=== PATIENT | female | born 1985 | race African-American/Black ===

== ENCOUNTER 2025-01-30 12:36 | Emergency (ER) | payer OTHER ==
[~2025-01-30] VITALS: Ht 175.3 cm; Wt 76.9 kg
--- NOTE | 2025-01-30 14:13 | DVH ---
INDICATION: sob TECHNIQUE: Frontal view of the chest. COMPARISON: None FINDINGS: . The heart and mediastinal contours are grossly unremarkable. There is no evidence of pleural disea se. The lungs are clear. The bony structures of the chest are intact without fracture. IMPRESSION: 1. No evidence of acute disease.
[2025-01-30 14:53] VITALS: BP 139/88; PULSE 95; RESP 26; TEMP 99.4; O2SAT 95
[2025-01-30] MEDS ORDERED: PRED10TA PO (15:04)
[2025-01-30] MEDS ORDERED: LEVO500T91 PO (15:04)
--- NOTE | 2025-01-30 15:04 | ED.PDOC ---
History of Present Illness HPI Comments 39-year-old female came to the ER stating that she has been having cough congestion sneezing for about a week. She also has been having runny nose. Cough is mostly throughout the day. She has not seen any provider for her symptoms. Denies taking any medication. Denies smoking. Dinner any other symptoms. Chief Complaint: Shortness of Breath Time Seen by MD: 13:22 Primary Care Provider: none Reviewed Notes: Nurses Notes, Medications, Allergies Allergies: Coded Allergies: NO KNOWN ALLERGIES (Unverified , 01/30/25) Home Meds Active Scripts Prednisone (Prednisone) 10 Mg Tab, 10 MG PO DAILY for 5 Days, #5 MG Prov:CHRISTIANO LOTT MD 01/30/25 Levofloxacin Hemihydrate (LEVOFLOXACIN) 500 Mg Tab, 1 TAB PO DAILY, #10 TAB Prov:CHRISTIANO LOTT MD 01/30/25 Information Source: Patient Mode of Arrival: Ambulatory Severity: Moderate Timing: Days Duration: Since onset Past Medical History PAST MEDICAL HISTORY: Denies Surgical History: Denies all surgeries CARE MANAGEMENT ASSOCIATE History: No Pertinent CARE MANAGEMENT ASSOCIATE History Social History Smoker: Non-Smoker Alcohol: Denies ETOH Use Drugs: Denies Drug Use Constitutional: denies: chills, diaphoresis, fatigue, fever, malaise, sweats, weakness, others EENTM: denies: blurred vision, double vision, ear bleeding, ear discharge, ear drainage, ear pain, ear ringing, eye pain, eye redness, hearing loss, mouth pain, mouth swelling, nasal discharge, nose bleeding, nose congestion, nose pain, photophobia, tearing, throat pain, throat swelling, voice changes, others Respiratory: reports: cough; denies: hemoptysis, orthopnea, SOB at rest, shortness of breath, SOB with excertion, stridor, wheezing, others Cardiovascular: denies: chest pain, dizzy spells, diaphoresis, Dyspnea on exertion, edema, irregular heart beat, left arm pain, lightheadedness, palpitations, PND, syncope, others Gastrointestinal: denies: abdomen distended, abdominal pain, blood streaked bowels, constipated, diarrhea, dysphagia, difficulty swallowing, hematemesis, melena, nausea, poor appetite, poor fluid intake, rectal bleeding, rectal pain, vomiting, others Genitourinary: denies: abnormal vagina bleeding, burning, dyspareunia, dysuria, flank pain, frequency, hematuria, incontinence, pain, , vagina discharge, urgency, others Neurological: denies: dizziness, fainting, headache, left sided numbness, left sided weakness, numbness, paresthesia, pre-existing deficit, right sided numbne ss, right sided weakness, seizure, speech problems, tingling, tremors, weakness, others Musculoskeletal: denies: back pain, gout, joint pain, joint swelling, muscle pain, muscle stiffness, neck pain, others Integumetry: denies: bruises, change in color, change in hair/nails, dryness, laceration, lesions, lumps, rash, wounds, others Allergic/Immunocompromised: denies: Difficulty Healing, Frequent Infections, Hives, Itching, others Hematologic/Lymphatic: denies: anemia, blood clots, easy bleeding, easy bruising, swollen glands, others Endocrine: denies: excessive hunger, excessive sweating, excessive thirst, excessive urination, flushing, intolerance to cold, intolerance to heat, unexplained weight gain, unexplained weight loss, others Psychiatric: denies: anxiety, bipolar disorder, depression, hopeless, panic disorder, schizophrenia, sleepless, suicidal, others Physical Exam General Appearance: Moderate Distress HEENT: Normal ENT Inspection, Pharynx Normal, TMs Normal Neck: Full Range of Motion, Non-Tender, Normal, Normal Inspection Respiratory: Other (Coarse breath sounds) Cardiovascular: No Edema, No JVD, No Murmur, No Gallop, Normal Peripheral Pulses, Regular Rate/Rhythm Breast Exam: Deferred Gastrointestinal: No Organomegaly, Non Tender, No Pulsatile Mass, Normal Bowel Sounds, Soft Genitalia: Deferred Pelvic: Deferred Rectal: Deferred Extremities: No calf tenderness, Normal capillary refill, Normal inspection, Normal range of motion, Non-tender, No pedal edema Musculoskeletal : Apperance: Normal Neurologic: Alert, human resources administrator II-XII nml as Tested, No Motor Deficits, Normal Affect, Normal Mood, No Sensory Deficits Cerebellar Function: Normal Reflexes: Normal Skin: Dry, Normal Color, Warm Peripheral Pulses: 3+ Radial (R), 3+ Radial (L) Lymphatic: No Adenopathy Was a procedure done? Was a procedure done?: No Differential Dx Considerations may include: Pneumonitis Electrolyte imbalance X-Ray, Labs, Meds, VS Vital Signs Date Time Temp Pulse Resp B/P (MAP) Pulse Ox O2 Delivery O2 Flow Rate FiO2 01/30/25 14:53 95 26 95 Room Air* 0 21 01/30/25 14:53 99.4 95 26 139/88 (105) 95 99.4 01/30/25 12:51 19 97 Room Air* 0 21 01/30/25 12:47 99.7 98 19 129/94 (106) 97 99.7 Current Medications Medications (Trade) Dose Ordered Sig/Jayda Route Start Time Stop Time Status Last Admin Methylprednisolone Sodium Succinate (Solu Medrol) 125 mg ONCE ONCE IM 01/30/25 15:00 01/30/25 15:01 DC 01/30/25 15:10 Patient alert. Complaining of cough. Chest x-ray reviewed does not show any acute changes mild inflammation. Vitals stable. Saturation pristine on room air. Respiratory rate within normal limits. No leg swelling. No chest pain. No discoloration. Heart rate on clinical examination within normal limits. Was given steroid. Was given prescription of prednisolone Levaquin antibiotic. Explained to the patient. Was told to follow up with her primary care physician. Was told to come back if there is any problem. Time of 1ST Reevaluation: 15:00 Reevaluation 1ST: Improved Patient Education/Counseling: Diagnosis, Treatment, Prognosis, Need For Follow Up Family Education/Counseling: Need For Follow Up Departure 1 Departure Time of Disposition: 15:01 Impression: Primary Impression: Pneumonitis Disposition: 01 HOME / SELF CARE / HOMELESS Condition: Good e-Prescriptions Prednisone (Prednisone) 10 Mg Tab 10 MG PO DAILY for 5 Days, #5 MG Prov: CHRISTIANO LOTT MD 01/30/25 Levofloxacin Hemihydrate (LEVOFLOXACIN) 500 Mg Tab 1 TAB PO DAILY, #10 TAB Prov: CHRISTIANO LOTT MD 01/30/25 Discharged With: Self Critical Care Note Critical Care Time?: No Stability Stability form required: No Heart Score Heart Score: Heart Score Response (Comments) Value History N/A 0 EKG N/A 0 Age N/A 0 Risk Factors N/A 0 Troponin N/A 0 Total 0 CHRISTIANO LOTT MD January 30, 2025 15:04
[2025-01-30] MEDS: methylPREDNISolone SOD SUCC 125 MG/2 ML VL IM ONE (15:10)
== END 2025-01-30 15:13 | disposition home or self-care (01) ==
LOC: ER 12:36
DX: J98.4 Other disorders of lung (principal); Z79.52 Long term (current) use of systemic steroids
CPT/HCPCS: 71045; 96372; 99283; J2919